=== PATIENT | female | born 1980 | race Caucasian/White ===

== ENCOUNTER 2019-09-08 12:09 | Emergency (ER) | payer OTHER ==
[2019-09-08] MEDS ORDERED: predniSONE 20 MG Tab PO ONE (12:10)
[2019-09-08] MEDS ORDERED: diphenhydrAMINE 50 MG/ML SDV IVPUSH ONE (12:40)
[2019-09-08] MEDS ORDERED: Dexamethasone 4 MG/ML SDV IVPUSH ONE (12:41)
--- NOTE | 2019-09-08 12:45 | EDM.PDOC ---
ED HPI GENERAL MEDICAL PROBLEM - General Chief Complaint: Allergic Reaction Stated Complaint: "allergic reaction" Time Seen by Provider: 09/08/19 12:21 Source of Information: Reports: Patient History Limitations: Reports: No Limitations - History of Present Illness INITIAL COMMENTS - FREE TEXT/NARRATIVE: Patient to the emergency department where she advises that she took a ibuprofen for her headache and developed an "allergic reaction". She advised that she did develop some chest pain as well as shortness of breath and became very anxious. However, she advises that she did not break out in any rash or whelps. She also advises she has had no itching. On patient's arrival she is already had 2 EpiPen's at home. The patient had no rash she appeared to be very anxious. She did complain of shortness of breath; however, her oxygen saturation was 100% on room air. The patient's lung sounds were equal and clear bilaterally. The patient denies any ear, nose, throat symptoms denies any problems swallowing. The patient denies any abdominal pain no nausea no vomiting. She denies any other symptoms Onset: Today, Sudden Duration: Hour(s): (about 1 hour prior to arrival.) Quality: Reports: Same as Previous Episode Severity: Severe Worsens with: Reports: None Associated Symptoms: Reports: Chest Pain, Shortness of Breath. Denies: Cough, Diaphoresis, Fever/Chills, Nausea/Vomiting, Rash, Syncope, Weakness Treatments [employer]: Reports: Other (see below) (EpiPen x2) Anterior Chest Pain Score (Numeric/FACES): 4 - Related Data Allergies Allergy/AdvReac Type Severity Reaction Status Date / Time acetaminophen Allergy Hives Verified 09/08/19 13:05 [From Darvocet-N 100] blueberry Allergy Anaphylactic Verified 09/08/19 13:05 Shock ketorolac Allergy Hives Verified 09/08/19 13:05 meperidine HCl [From Demerol] Allergy Hives Verified 09/08/19 13:05 propoxyphene napsylate Allergy Hives Verified 09/08/19 13:05 [From Darvocet-N 100] tramadol HCl [From Ultracet] Allergy Hives Verified 09/08/19 13:05 bee stings Allergy Anaphylactic Uncoded 09/08/19 13:05 Shock Home Meds: Home Meds EPINEPHrine [Epipen 2-Daryl] 0.3 mg IM ASDIRECTED PRN 1 Days #2 auto.injct [Rx] ED ROS ALLERGIC REACTION - Review of Systems Review Of Systems: See Below Constitutional: Reports: No Symptoms. Denies: Fever, Chills, Weakness HEENT: Reports: No Symptoms. Denies: Ear Pain, Nose Pain, Throat Pain, Throat Swelling Respiratory: Reports: Shortness of Breath. Denies: Wheezing Cardiovascular: Reports: Chest Pain Endocrine: Reports: No Symptoms GI/Abdominal: Reports: No Symptoms. Denies: Abdominal Pain, Nausea, Vomiting Musculoskeletal: Reports: No Symptoms. Denies: Neck Pain, Back Pain Skin: Reports: No Symptoms. Denies: Rash, Erythema Neurological: Reports: No Symptoms. Denies: Confusion, Numbness Psychiatric: Reports: Anxiety ED EXAM GENERAL NO PERIP PULSE - Physical Exam Exam: See Below Exam Limited By: No Limitations General Appearance: Alert, WD/WN, Anxious Ears: Normal External Exam Nose: Normal Inspection Throat/Mouth: Normal Inspection, Normal Lips, Normal Oropharynx, Normal Voice, No Airway Compromise Head: Atraumatic, Normocephalic Neck: Normal Inspection, Supple, Non-Tender, Full Range of Motion Respiratory/Chest: No Respiratory Distress, Lungs Clear, Normal Breath Sounds, No Accessory Muscle Use Cardiovascular: Normal Peripheral Pulses, Regular Rate, Rhythm, No Edema, No Murmur GI/Abdominal: Normal Bowel Sounds, Soft, Non-Tender Back Exam: Normal Inspection, Full Range of Motion Extremities: Normal Inspection, Normal Range of Motion, Non-Tender, Normal Capillary Refill Neurological: Alert, Oriented, Normal Cognition, Normal Gait, No Motor/Sensory Deficits Psychiatric: Anxious Skin Exam: Warm, Dry, Intact, Normal Color, No Rash Course - Vital Signs Text/Narrative:: 1315 the patient is been evaluated in the emergency department, the patient has been given IV Benadryl and Decadron and is feeling better at this point. I did go and speak to the patient's and daughter and advised him of her status and that she is doing better. Her was rightfully upset that he cannot come into visit and I did explain to him the policy with the COVID virus which he overall understood however he did not think it was appropriate that he is not allowed to come into the facility and again advised him that were following governmental guidelines for the safety of that patients and the staff. I did advise the patient that I spoke with her family and that they are thinking about her. We will continue to monitor the patient and I suspect she should be discharged shortly. 1342 the patient continues to improve. The patient will be discharged with prednisone 40 mg once a day for 3 days and she will be advised to take Benadryl 25 mg every 8 hours for 24 hours. The patient will have prescriptions called into the pharmacy to refill her EpiPen. The patient will be advised to avoid using ibuprofen and other medications that contain aspirin. The patient is to return to the emergency department sooner if worse or any problems. She is to follow-up the family doctor in the coming week. Last Recorded V/S: Last Vital Signs Temp 36.6 C 09/08/19 13:37 Pulse 60 09/08/19 13:37 Resp 16 09/08/19 13:37 BP 105/74 09/08/19 13:37 Pulse Ox 98 09/08/19 13:37 - Orders/Labs/Meds Meds: Medications Discontinued Medications Generic Name Dose Route Start Last Admin Trade Name Freq PRN Reason Stop Dose Admin Dexamethasone 10 mg 09/08/19 12:41 09/08/19 12:52 Dexamethasone IVPUSH 09/08/19 12:42 10 mg ONETIME ONE Administration Diphenhydramine HCl 25 mg 09/08/19 12:40 09/08/19 12:47 Benadryl IVPUSH 09/08/19 12:41 25 mg ONETIME ONE Administration Departure - Departure Time of Disposition: 13:43 Disposition: Home, Self-Care 01 Clinical Impression: Allergic reaction - Discharge Information *PRESCRIPTION DRUG MONITORING PROGRAM REVIEWED*: Not Applicable *COPY OF PRESCRIPTION DRUG MONITORING REPORT IN PATIENT SHADI: Not Applicable Prescriptions: EPINEPHrine [Epipen 2-Daryl] 0.3 mg IM ASDIRECTED PRN 1 Days #2 auto.injct PRN Reason: Allergies Forms: ED Department Discharge Additional Instructions: Avoid any further Motrin or medications with aspirin in it Benadryl 25 mg every 8 hours for 24 hours Prednisone 40 mg once a day for 3 days Return to the emergency department sooner if worse or any problems Follow-up with your family doctor this week Sepsis Event Note - Focused Exam Vital Signs: Vital Signs Temp Pulse Resp BP Pulse Ox 09/08/19 13:37 36.6 C 60 16 105/74 98 09/08/19 13:05 61 20 151/81 H 100 09/08/19 12:52 36.6 C 93 18 118/68 100 09/08/19 12:30 36.7 C 85 28 H 120/72 99 Date Exam was Performed: 09/08/19 Time Exam was Performed: 13:42 - Problem List & Annotations (1) Allergic reaction SNOMED Code(s): 844171602 Code(s): T78.40XA - ALLERGY, UNSPECIFIED, INITIAL ENCOUNTER Status: Acute Priority: High Current Visit: Yes Qualifiers: Encounter type: initial encounter Qualified Code(s): T78.40XA - Allergy, unspecified, initial encounter - Problem List Review Problem List Initiated/Reviewed/Updated: Yes - Assessment/Plan Plan: The patient's past medical history, past surgical history, social history and past family medical history has been reviewed, see nursing notes for details See the above course for details in describing the patient's plan
[2019-09-08 13:38] VITALS: BP 105/74; PULSE 60
[2019-09-08] MEDS ORDERED: Take Home: predniSONE 20 MG, 2 Tab Pack PO ONE (13:46)
== END 2019-09-08 14:00 | disposition home or self-care (01) ==
LOC: CC.ED 12:09
DX: R06.02 Shortness of breath (principal); R07.9 Chest pain, unspecified; Z91.030 Bee allergy status; Z88.6 Allergy status to analgesic agent; Z91.018 Allergy to other foods; T39.315A Adverse effect of propionic acid derivatives, initial encounter
CPT/HCPCS: 96374; 96375; 99283-25; J1100; J1200; J7512